=== PATIENT | male | born 1990 | race Caucasian/White ===

== ENCOUNTER 2019-04-29 08:20 | Emergency (ER) | payer OTHER ==
--- NOTE | 2019-04-29 09:08 | EDM.PDOC ---
ED HPI GENERAL MEDICAL PROBLEM - General Chief Complaint: General Stated Complaint: CHEST CONGESTION Time Seen by Provider: 04/29/19 09:01 Source of Information: Reports: Patient History Limitations: Reports: No Limitations - History of Present Illness INITIAL COMMENTS - FREE TEXT/NARRATIVE: Patient is a 28-year-old gentleman who presents to the emergency department this morning with a complaint of fever, cough, and upper respiratory symptoms. He states symptoms began 5 days ago and have progressively worsened. Patient states throughout the night he woke up drenched with sweat and today his lungs feel wheezy. Patient states that he traveled 2 weeks ago from [facility] to [place]. Patient denies any previous pulmonary issues, blood in sputum, nausea, vomiting, diarrhea, blood in stool, abdominal pain, headache, or stiff neck. Onset: Gradual Onset Date: 04/24/19 Duration: Day(s): Location: Reports: Chest Quality: Reports: Ache Severity: Mild Improves with: Reports: None Worsens with: Reports: None Associated Symptoms: Reports: Cough, cough w sputum, Fever/Chills - Related Data Allergies Allergy/AdvReac Type Severity Reaction Status Date / Time No Known Allergies Allergy Verified 04/29/19 08:45 Home Meds: Home Meds Albuterol [Proventil HFA] 6.7 gm IH QID #1 inhaler 04/29/19 [Rx] Azithromycin [Zithromax] 500 mg PO DAILY #2 tab 04/29/19 [Rx] predniSONE [Prednisone] 20 mg PO DAILY #3 tab.ds.pk 04/29/19 [Rx] Past Medical History Musculoskeletal History: Reports: Fracture Social & Family History - Family History Family Medical History: Noncontributory - Tobacco Use Smoking Status *Q: Current Every Day Smoker Years of Tobacco use: 10 Packs/Tins Daily: 1 Used Tobacco, but Quit: No Second Hand Smoke Exposure: Yes - Caffeine Use Caffeine Use: Reports: Coffee - Recreational Drug Use Recreational Drug Use: No ED ROS GENERAL - Review of Systems Review Of Systems: ROS reveals no pertinent complaints other than HPI. Constitutional: Reports: Fever, Chills, Night Sweats, Diaphoresis HEENT: Reports: No Symptoms Respiratory: Reports: Wheezing, Cough, Sputum. Denies: Hemoptysis Cardiovascular: Reports: No Symptoms Endocrine: Reports: No Symptoms GI/Abdominal: Reports: No Symptoms : Reports: No Symptoms Musculoskeletal: Reports: No Symptoms Skin: Reports: No Symptoms Neurological: Reports: No Symptoms Psychiatric: Reports: No Symptoms Hematologic/Lymphatic: Reports: No Symptoms Immunologic: Reports: No Symptoms ED EXAM, GENERAL - Physical Exam Exam: See Below Exam Limited By: No Limitations General Appearance: Alert, WD/WN, No Apparent Distress Eye Exam: Bilateral Eye: Normal Inspection Ears: Normal External Exam, Normal Canal, Normal TMs Nose: Normal Inspection, Normal Mucosa, No Blood Throat/Mouth: Normal Inspection, Normal Oropharynx, No Airway Compromise Head: Atraumatic, Normocephalic Neck: Normal Inspection, Supple, Non-Tender. No: Lymphadenopathy (L), Lymphadenopathy (R) Respiratory/Chest: No Respiratory Distress, Wheezing (Inspiratory and expiratory throughout) Cardiovascular: Regular Rate, Rhythm, No Murmur GI/Abdominal: Normal Bowel Sounds, Soft, Non-Tender, No Organomegaly, No Distention, No Abnormal Bruit, No Mass Extremities: Normal Inspection, No Pedal Edema Neurological: Alert, Oriented, Normal Cognition Psychiatric: Normal Affect, Normal Mood Skin Exam: Warm, Dry, Intact, Normal Color, No Rash Lymphatic: No Adenopathy Course - Vital Signs Last Recorded V/S: Last Vital Signs Temp 97.1 F 04/29/19 08:39 Pulse 77 04/29/19 08:39 Resp 16 04/29/19 08:39 BP 98/71 04/29/19 08:39 Pulse Ox 94 L 04/29/19 08:39 - Orders/Labs/Meds Orders: Active Orders 24 hr Category Date Time Status RT Aerosol Therapy [RC] ASDIRECTED Care 04/29/19 09:02 Ordered CXR [Chest 2V] [CR] Stat Exams 04/29/19 08:49 Ordered Meds: Medications Discontinued Medications Generic Name Dose Route Start Last Admin Trade Name Freq PRN Reason Stop Dose Admin Albuterol/Ipratropium 3 ml 04/29/19 09:01 Duoneb 3.0-0.5 Mg/3 Ml NEB 04/29/19 09:02 ONETIME ONE Dexamethasone 8 mg 04/29/19 09:01 Dexamethasone IM 04/29/19 09:02 ONETIME ONE - Radiology Interpretation Free Text/Narrative:: Chest x-ray shows some streaking in the left lung. Chest x-ray read negative by radiology. - Re-Assessments/Exams Free Text/Narrative Re-Assessment/Exam: 04/29/19 09:28 Patient afebrile, nontoxic appearing, vital signs stable. Patient given Decadron, albuterol, 1 g Rocephin IM, and 500 mg Zithromax in the ER. Prescription for albuterol, Zithromax, and prednisone. Departure - Departure Time of Disposition: 09:29 Disposition: Home, Self-Care 01 Condition: Good Clinical Impression: Bronchitis - Discharge Information Instructions: Upper Respiratory Infection, Adult, [id number], Metered Dose Inhaler (No Spacer Used), How to Use a Metered Dose Inhaler Referrals: PCP,None [Primary Care Provider] - Ruma Maxwell MD [Physician] - Additional Instructions: Follow-up with Dr. Bergeron in 2 days. Return to emergency room sooner if symptoms continue or worsen. - My Orders Last 24 Hours: My Active Orders 04/29/19 08:49 CXR [Chest 2V] [CR] Stat 04/29/19 09:02 RT Aerosol Therapy [RC] ASDIRECTED - Assessment/Plan Last 24 Hours: My Active Orders 04/29/19 08:49 CXR [Chest 2V] [CR] Stat 04/29/19 09:02 RT Aerosol Therapy [RC] ASDIRECTED Assessment:: Bronchitis Plan: Follow-up with PCP in 2 days
[2019-04-29] MEDS: Albuterol/Ipratropium 3.0-0.5 MG/3 ML Neb Soln NEB ONE (09:12)
--- NOTE | 2019-04-29 09:26 | CR ---
[id number] RAD/RAD Chest PA And Lateral EXAM: RAD Chest PA And Lateral CLINICAL DATA: CHEST CONGESTION COMPARISON: NO PREVIOUS SIMILAR EXAM IS AVAILABLE. FINDINGS: The lungs are clear. The cardiomediastinal contour is normal. The regional bones and soft tissues are unremarkable. IMPRESSION: NO ACUTE PROCESS. Chan Bess MD 04/29/19 0925 Thank you for allowing us to participate in the care of your patient.
[2019-04-29] MEDS: Dexamethasone 4 MG/ML SDV IM ONE (09:31)
[2019-04-29] MEDS: cefTRIAXone 1 GM Vial IM ONE (09:44)
[2019-04-29] MEDS: Azithromycin 250 MG Tab PO ONE (09:44)
== END 2019-04-29 09:53 | disposition home or self-care (01) ==
LOC: KA.ED 08:20
DX: J40 Bronchitis, not specified as acute or chronic (principal); F17.210 Nicotine dependence, cigarettes, uncomplicated
CPT/HCPCS: 71046; 94640; 96372; 99283-25; A9270-GY; J0696; J1100; J7620-GY